=== PATIENT | male | born 1970 | race Caucasian/White ===

== ENCOUNTER 2018-11-02 16:25 | Emergency (ER) | payer MEDICAID ==
[~2018-11-02] VITALS: Ht 188 cm; Wt 70.9 kg
[~2018-11-02 16:25] MED LIST: FANAPT6 MG; INDERAL 40 MG T40 MG PO; NORCO 7.5-3251 EACH PO; TOPAMAX100 MG PO; VALIUM10 MG PO; XANAX2 MG PO; ZOLOFT100 MG PO; [UNRECOGNIZED DRUG - OTHER] PO
[2018-11-02 16:34] VITALS: BP 135/93; Ht 188 cm; Wt 70.9 kg
[2018-11-02] MEDS ORDERED: CELEXA40 MG PO (16:37)
[2018-11-02] MEDS ORDERED: KEFLEX500 MG PO (17:30)
== END 2018-11-02 18:00 | disposition home or self-care (01) ==
LOC: D.ER 16:25
DX: T21.24XA Burn of second degree of lower back, initial encounter (principal); X03.3XXA Fall due to controlled fire, not in building or structure, initial encounter; Y93.89 Activity, other specified; Y92.89 Other specified places as the place of occurrence of the external cause; G40.909 Epilepsy, unspecified, not intractable, without status epilepticus; F17.200 Nicotine dependence, unspecified, uncomplicated

== ENCOUNTER 2019-01-01 14:22 | Emergency (ER) | payer MEDICAID ==
[~2019-01-01] VITALS: Ht 188 cm; Wt 72.7 kg
[~2019-01-01 14:22] MED LIST changes: +CELEXA40 MG PO; +KEFLEX500 MG PO
[2019-01-01 14:27] VITALS: Ht 188 cm; Wt 72.7 kg
[2019-01-01 18:07] VITALS: BP 129/92
== END 2019-01-01 18:08 | disposition home or self-care (01) ==
LOC: D.ER 14:22
DX: F41.1 Generalized anxiety disorder (principal)

== ENCOUNTER 2019-05-25 21:21 | Inpatient (IN) | payer OTHER ==
[~2019-05-25] VITALS: Ht 188 cm; Wt 78.6 kg
--- NOTE | 2019-05-25 22:00 | NUR ---
PT UP TO BATHROOM ABLE TO AMBULATE WITH ASSISTANCE X 2 PT HAD LARGE WATERY LIGHT BROWN BOWEL MOVEMENT. PT UNABLE TO STATE HOW LONG HE HAS HAD DIARRHEA. PT DENIES ABD PAIN OR NAUSEA AT THIS TIME.
[2019-05-25 22:17] LABS: HEMATOCRIT 52.1 % (42.0-54.0); HEMOGLOBIN 18.7 g/dL (13.5-17.5); MCH 33.6 pg (26.0-34.0); MCHC 35.9 g/dL (31.0-37.0); MCV 93.5 fL (80.0-100.0); MEAN PLATELET VOLUME 10.6 fL (7.4-10.4); PLATELET COUNT 184 10x3/uL (130-400); RBC 5.57 10x6/uL (4.20-6.10); RDW 13.6 % (11.5-14.5); WBC 7.2 10x3/uL (4.8-10.8)
[2019-05-25 22:28] LABS: ALBUMIN 4.2 g/dL (3.4-5.0); ALKALINE PHOSPHATASE 78 U/L (46-116); ALT (SGPT) 52 U/L (10-68); BILIRUBIN - TOTAL 0.19 mg/dL (0.2-1.3); CALC OSMOLALITY 274 mosm/kg (275-300); CALCIUM 9.1 mg/dL (8.5-10.1); CARBON DIOXIDE 20.8 mmol/L (21.0-32.0); CHLORIDE - SERUM 102 mmol/L (98-107); GLUCOSE 98 mg/dL (74-106); POTASSIUM - SERUM 3.7 mmol/L (3.5-5.1); PROTEIN - SERUM 8.8 g/dL (6.4-8.2); SODIUM 138 mmol/L (136-145); UREA NITROGEN 9 mg/dL (7-18); eGFR NON AFRICAN AMERICAN 85 mL/min (90-120)
[2019-05-25 22:30] LABS: MAGNESIUM - SERUM 2.1 mg/dL (1.8-2.4)
[2019-05-25 22:38] LABS: EOSINOPHILS 1 % (0-7); LYMPHOCYTES 70 % (15-50); MONOCYTES 2 % (2-11); NEUTROPHILS 25 % (40-80)
[2019-05-25 22:39] LABS: PLATELET ESTIMATE NORMAL; TARGET CELLS 1+; TEAR DROP CELLS 1+
[2019-05-25 22:47] LABS: APPEARANCE CLEAR (CLEAR); BILIRUBIN NEGATIVE (NEGATIVE); COLOR YELLOW (YELLOW); GLUCOSE NEGATIVE (NEGATIVE); KETONE NEGATIVE (NEGATIVE); NITRITE NEGATIVE (NEGATIVE); PROTEIN NEGATIVE (NEGATIVE); UROBILINOGEN NORMAL (NORMAL)
--- NOTE | 2019-05-25 22:50 | NUR ---
PT DID NOT RESPOND TO NARCAN PT STILL LETHARGIC. SEE EMAR. MORRISON IMFORMED.
[2019-05-25 22:54] LABS: UDS - AMPHET NEGATIVE QUAL (NEGATIVE); UDS - BARB NEGATIVE QUAL (NEGATIVE); UDS - BENZO NEGATIVE QUAL (NEGATIVE); UDS - COCAINE NEGATIVE QUAL (NEGATIVE); UDS - OPIATE NEGATIVE QUAL (NEGATIVE); UDS - PCP NEGATIVE QUAL (NEGATIVE); UDS - THC NEGATIVE QUAL (NEGATIVE)
--- NOTE | 2019-05-25 22:58 | NUR ---
POISION CONTROL CALLED FOR POSSIBLE CITALOPRAM OVERDOSE. ADVISED TO OBTAIN 12-LEAD EKG, ASA AND ACETAMINOPHEN INTOX SCREENS. EDP NOTIFIED.
[2019-05-25 23:00] VITALS: BP 118/74
--- NOTE | 2019-05-25 23:00 | NUR ---
PT O2 ON RA IS 92% MD INFORMED. MOVED TO T 3 AT THIS TIME PT PLACED 4 L NC PT O2 IS NOW IMPROVED TO 94%.MD AT BEDSIDE. WILL CONTINUE TO MONITOR.
--- NOTE | 2019-05-25 23:10 | NUR ---
AMMONIA PLACED UNDER PT NOSE TO STIMULATE PT TO ASK QUESTIONS. PT ABLE TO OPEN EYE AND SIT UP PT FOLLOWS COMMANDS BUT FALLS ASLEEP WHEN NOT STIMULATED HAS SLURRED SPEECH AND UNABLE TO ANSWER QUESTIONS
--- NOTE | 2019-05-25 23:20 | NUR ---
PT HAD BM AT THIS TIME AND URINATED ON HIMSELF. STATES TO PLACE COCHRAN. PT TOLERATED WELL
[2019-05-26] VITALS (26 sets, daily range): BP systolic 99–123; BP diastolic 68–83; Ht 188 cm; Wt 78.6 kg
--- NOTE | 2019-05-26 | NUR ---
NASAL TRUMPET PLACED TO L SIDED NARE PER MD
--- NOTE | 2019-05-26 00:10 | NUR ---
ORNAMENTAL PLASTERER HELPER CALLED AT THIS TIME FOR PSYCH EVALUATION. PT HAS ETOH ON BOARD AND IS UNABLE TO ANSWER PSYCH QUESTIONS AT THIS TIME. WILL EVAL LATER. PT DOES STATE THAT IS DID TAKE OD WITH THE PURPOSE TO END HIS LIFE. PSYCH NURSE INFORMED.
--- NOTE | 2019-05-26 01:10 | NUR ---
PT HAD BOWELMOVENT AT THIS TIME. DENIES COMPLAINTS. PT RESTING EYES CLOSED ON MONITOR AT THIS TIME. WILL CONT TO MONITOR.
--- NOTE | 2019-05-26 02:00 | NUR ---
PT RESTING ON MONITOR AT THIS TIME RESP EVEN AND UNLABORED.
--- NOTE | 2019-05-26 03:00 | NUR ---
PT HAD BM AT THIS TIME. PT ON MONITOR WILL CONT TO MONTIOR PT
--- NOTE | 2019-05-26 07:46 | NUR ---
LYING IN BED RESTING AT THIS TIME, RESPIRATIONS STEADY AND UNALBORED. PT AWAKENS WHEN SPOKEN TO AND ANSWERS QUESTIONS APPROPIATELY. PT DENIES CURRENTLY BEING SUICIDAL, BUT STATED LAST NIGHT HE WAS. VSS. SITTER PRESENT. WILL CONTINUE TO CLOSELY OBSERVE.
--- NOTE | 2019-05-26 09:45 | NUR ---
FAX SENT TO [facility] REGARDING CONSULT FOR DR MCDOWELL.
--- NOTE | 2019-05-26 10:15 | NUR ---
PER DR MCDOWELL, PT NEEDS INPATIENT PSYCH PLACEMENT WHEN MEDICALLY CLEARED BY ADMITTING PHYSICIAN. NO ACUTE DISTRESS NOTED. VSS. WILL CONTINUE PLAN OF CARE.
--- NOTE | 2019-05-26 12:25 | NUR ---
UP IN BED EATING LUNCH AT THIS TIME. NO ACUTE DISTRESS NOTED. VSS. CALL LIGHT IN REACH. SITTER AT DOORWAY. WILL CONTINUE PLAN OF CARE.
--- NOTE | 2019-05-26 13:26 | NUR ---
EMERGENCY CONTACT INFORMATION VERIFIED BY PT AT THIS TIME.
--- NOTE | 2019-05-26 14:38 | NUR ---
PT REFUSED BED BATH, STATING "NOT NOW."
[2019-05-26] MEDS ORDERED: PROPRANOLOL HCL20 MG PO (14:44)
--- NOTE | 2019-05-26 14:45 | NUR ---
PREFERRED PHARMACY AND RECONCILED MED LIST VERIFIED WITH PT.
--- NOTE | 2019-05-26 15:30 | NUR ---
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 ALSO AT THIS TIME PT HISTORY OBTAINED. NO ACUTE DISTRESS NOTED. WILL CONTINUE PLAN OF CARE.
--- NOTE | 2019-05-26 16:03 | NUR ---
PT LYING IN BED RESTING WITH EYES CLOSED AT THIS TIME. NO ACUTE DISTRESS NOTED. DENIES ANY NEEDS. VSS. SITTER PRESENT. WILL CONTINUE PLAN OF CARE.
--- NOTE | 2019-05-26 18:00 | NUR ---
UP IN BED RESTING AT THIS TIME. NO ACUTE DISTERSS NOTED. AWAKENS EASILY WHEN SPOKEN TO. VSS. CALL LIGHT IN REACH. SITTER PRESENT. WILL CONTINUE PLAN OF CARE.
--- NOTE | 2019-05-26 19:30 | NUR ---
RESUMED CARE OF PT, ASSESSMENT PER FLOWSHEET, PT DROWSY BUT RESPONDS TO VERBAL STIMULI, HR SR ON CM, PPP, DENIES ANY NEEDS AT THIS TIME. PT IN SITTER LINE OF SIGHT, WILL MONITOR.
--- NOTE | 2019-05-26 21:40 | NUR ---
PT RESTING IN BED WITH EYES CLOSED, AROUSES EASILY TO VOICE, TRAY REMOVED AT THIS TIME.
--- NOTE | 2019-05-26 23:30 | NUR ---
REASSESSMENT PER FLOWSHEET, NO ACUTE CHANGES NOTED AT THIS TIME. VSS, CONT POC.
[2019-05-27] VITALS (18 sets, daily range): BP systolic 97–114; BP diastolic 69–80
--- NOTE | 2019-05-27 00:49 | NUR ---
PT RESTING IN BED WITH EYES CLOSED, VSS, CONT TO MONITOR.
--- NOTE | 2019-05-27 03:25 | NUR ---
REASSESSMENT PER FLOWSHEET, NO ACUTE CHANGES NOTED AT THIS TIME, VSS.
--- NOTE | 2019-05-27 03:31 | NUR ---
O2 DECREASED TO 2L NC, O2 SAT REMAINS 98%, WILL MONITOR.
[2019-05-27 05:42] LABS: ALKALINE PHOSPHATASE 63 U/L (46-116); BILIRUBIN - TOTAL 0.68 mg/dL (0.2-1.3); CALC OSMOLALITY 267 mosm/kg (275-300); CALCIUM 7.7 mg/dL (8.5-10.1); CHLORIDE - SERUM 104 mmol/L (98-107); CREATININE - SERUM 0.9 mg/dL (0.6-1.3); GLUCOSE 86 mg/dL (74-106); SODIUM 135 mmol/L (136-145); UREA NITROGEN 9 mg/dL (7-18); eGFR NON AFRICAN AMERICAN > 90 mL/min (90-120)
[2019-05-27 05:48] LABS: LYMPHOCYTES 32.5 % (15-50); MCH 32.9 pg (26.0-34.0); MCHC 34.1 g/dL (31.0-37.0); MEAN PLATELET VOLUME 10.6 fL (7.4-10.4); NEUTROPHILS 57.8 % (40-80); RDW 13.2 % (11.5-14.5); WBC 7.7 10x3/uL (4.8-10.8)
[2019-05-27 05:50] LABS: HEMATOCRIT 41.6 % (42.0-54.0); HEMOGLOBIN 14.2 g/dL (13.5-17.5); MCV 96.5 fL (80.0-100.0); PLATELET COUNT 125 10x3/uL (130-400); RBC 4.31 10x6/uL (4.20-6.10)
[2019-05-27 05:51] LABS: ALBUMIN 2.9 g/dL (3.4-5.0); ALT (SGPT) 30 U/L (10-68); CARBON DIOXIDE 26.6 mmol/L (21.0-32.0); POTASSIUM - SERUM 4.4 mmol/L (3.5-5.1); PROTEIN - SERUM 6.1 g/dL (6.4-8.2)
--- NOTE | 2019-05-27 06:02 | NUR ---
PT RESTING IN BED WITH EYES CLOSED, AROUSES EASILY TO VOICE, DENIES ANY NEEDS AT THIS TIME, VSS.
--- NOTE | 2019-05-27 08:41 | NUR ---
UP IN BED EATING BREAKFAST AT THIS TIME. NO ACUTE DISTRESS NOTED. VSS. PT INDEPENDENT IN BED. DENIES ANY NEEDS. WILL CONTINUE PLAN OF CARE.
--- NOTE | 2019-05-27 10:49 | CN ---
PATIENT NAME:JOSE APARICIO JR MEDICAL RECORD: [id number] : 72 LOCATION:[id number] ADMIT DATE: 05/26/19 ACCOUNT: [id number] CONSULTING PHYSICIAN: ELLIOT MCDOWELL MD REFERRING PHYSICIAN: AISHA GREGORY MD DATE OF CONSULTATION: 05/26/2019 PSYCHIATRIC CONSULTATION IDENTIFYING DATA: The patient is a 48-year-old and he is admitted to the hospital on a voluntary basis. CHIEF COMPLAINT: Overdose. HISTORY OF PRESENT ILLNESS: The patient drank a large amount of alcohol and took an overdose of Celexa. He was drunk at that time and he thought the Celexa was Klonopin. He tells me that he has numerous stressors, primarily financial and then conflict in his relationship with his significant other of 17 years who happens to be a man and refuses to work even though he is able to do so. The patient himself is on disability secondary to bipolar disorder. He endorses numerous neurovegetative depressive symptoms. He says that he is a binge drinker, does not drink on a daily basis by any means and that he has never had any alcohol withdrawal symptoms. MENTAL STATUS EXAMINATION: The patient is awake, alert and oriented to person, place, time and situation. His mood is depressed. His affect is constricted. Thought processes are circumstantial. Memory, concentration, and abstraction abilities are moderately impaired and he denies that he would seek to harm himself or others as well as active psychotic symptoms. ASSESSMENT: 1. Bipolar disorder depressed. 2. Status post overdose. PLAN: At this time, the patient is sober, depressed, and says he is unsure if he still wants to hurt himself. He is in need of transferred to acute inpatient psychiatric care once medically stabilized. TRANSINT:[id number] Voice Confirmation ID: [id number] DOCUMENT ID: [id number] ELLIOT MCDOWELL MD at 1049 CC: [id number] DICTATION DATE: 05/26/19 1123 ASSISTANCE REPRESENTATIVE: 05/26/19 1353 [place] [address]
--- NOTE | 2019-05-27 13:06 | NUR ---
COCHRAN DC AT THIS TIME PER PHYSICIAN ORDERS. CATHETER TIP INTACT. NO ACUTE DISTRESS NOTED. VSS. WILL CONTINUE PLAN OF CARE.
--- NOTE | 2019-05-27 14:17 | NUR ---
NOTED ORDERS FOR PT TO GO TO INPATIENT PSYCH PLACEMENT. TRANSFER CENTER CONTACTED, NECESSARY INFORMATION SENT. WAITING TO HEAR BACK FROM TRANSFER CENTER REGARDING TRANSFER PLACEMENT FOR INPATINENT PSYCH. NO ACUTE DISTRESS NOTED. WILL CONTINUE PLAN OF CARE.
--- NOTE | 2019-05-27 14:33 | NUR ---
BED BATH OFFERED, PT REFUSED BATH STATING "NO." ALSO AT THIS TIME CONTINENT VOID AND BOWEL MOVEMENT NOTED, BOWEL MOVEMENT MEDIUM LIQUID BROWN. PT PROVIDED OWN CHUCKY CARE. VSS. NO ACUTE DISTRESS NOTED. WILL CONTINUE PLAN OF CARE.
--- NOTE | 2019-05-27 17:19 | NUR ---
REPORT CALLED TO TICO OLIVARES RN, FOR PT TO GO TO [facility]. DR JANNY SANCHEZ TO BE PTS PHYSICIAN AT [facility].
--- NOTE | 2019-05-27 18:08 | NUR ---
VERBAL/TELEPHONE ORDER RECIEVED BY DR GREGORY TO TRANSFER PT TO INPATIENT PSYCH PLACEMENT AT [facility].
--- NOTE | 2019-05-27 18:36 | NUR ---
NOTED AMBULANCE TO ARRIVE IN AROUND AN HOUR, PT UP IN BED AWAKE. DENIES ANY NEEDS. PT HAS SIGNED PAPERWORK TO BE TRANSFERRED TO INPATIENT PSYCH PLACEMENT AT [facility]. NO ACUTE DISTRESS NOTED. VSS. WILL CONTINUE PLAN OF CARE.
--- NOTE | 2019-05-27 19:00 | NUR ---
REPORT RECEIVED, ASSESSMENT COMPLETE, PT AAOx4 PT DENIES PAIN OR NEEDS, RT AC 20g PIV REMOVED FOR TRANSFER, [facility] AND RECEIVING FACILITY CONTACTED BY DAY SHIFT, PT VSS, WILL CONTINUE TO MONITOR
--- NOTE | 2019-05-27 20:37 | NUR ---
[facility] AT BEDSIDE, REPORT GIVEN TO RITA AGRAWAL [employer] CAR WASH ATTENDANT
--- NOTE | 2019-05-28 09:50 | MORECARE ---
CASE MANAGEMENT DISCHARGE SUMMARY PATIENT: JOSE APARICIO JR UNIT: [id number] ADM DATE: 05/26/19 AGE: 48 : 72 SEX: M ROOM/BED: D.2302 AUTHOR: SEAN ARIAS PHYSICIAN: REFERRING PHYSICIAN: AISHA GREGORY MD DATE OF SERVICE: 05/28/19 Discharge Plan Patient Name: JOSE APARICIO [facility] [facility] 1970 Planned Disposition: Anticipated Discharge Date: Discharge Date: 05/27/2019 Expected LOS: Initial Reviewer: [email or web address] Initial Review Date: 05/26/2019 Generated: 05/28/19 10:50 am Comments DCP- Discharge Planning Updated by [email or web address]: Karyn Hayes on 05/27/19 3:[address] Patient has been accepted to the [facility] for PSYCH treatment. Karyn Hayes RN CM Patient Name: JOSE APARICIO Page [id number] at 0950 All edits/amendments must be made on the electronic document DICTATION DATE: 05/28/1950 STOVE MOUNTER: EVAN 05/28/19 0950 RPT#: [id number] DC DATE:05/27/19 STATUS: DIS IN [facility] [address] [place] [address] END OF REPORT
== END 2019-05-27 20:40 | disposition short-term general hospital (02) | DRG 918 ==
LOC: D.ER 21:21 → D.ICU 05-26 03:03
PROVIDERS: Family Medicine; ADMIT Family Medicine; ATTEND Family Medicine
DX: T43.222A Poisoning by selective serotonin reuptake inhibitors, intentional self-harm, initial encounter (principal); R45.851 Suicidal ideations; F10.129 Alcohol abuse with intoxication, unspecified; F31.9 Bipolar disorder, unspecified

== ENCOUNTER 2020-01-16 19:21 | Emergency (ER) | payer OTHER ==
[~2020-01-16] VITALS: Ht 188 cm; Wt 86.4 kg
[~2020-01-16 19:21] MED LIST changes: +PROPRANOLOL HCL20 MG PO
[2020-01-16 19:24] VITALS: Ht 188 cm; Wt 86.4 kg
[2020-01-16 20:46] VITALS: BP 120/72
== END 2020-01-16 20:30 | disposition home or self-care (01) ==
LOC: D.ER 19:21
DX: S91.312A Laceration without foreign body, left foot, initial encounter (principal); X99.1XXA Assault by knife, initial encounter; Y93.9 Activity, unspecified; Y92.9 Unspecified place or not applicable

== ENCOUNTER → 2020-05-01 11:04 | Outpatient (CLI) | payer OTHER ==
[2020-01-16 19:24] VITALS: BMI 24.4
== END | disposition home or self-care (01) ==
LOC: D.HCCECHO 11:04
PROVIDERS: ATTEND Internal Medicine Cardiovascular Disease
DX: R06.00 Dyspnea, unspecified (principal)

== ENCOUNTER 2020-05-21 10:46 | Day surgery (SDC) | payer OTHER ==
[~2020-05-21] VITALS: Ht 188 cm; Wt 87.0 kg
--- NOTE | ~2020-05-21 | HEMODYNAMI ---
PATIENT:JOSE APARICIO JR MEDICAL RECORD: [id number] : 72 LOCATION:[facility] ADMISSION DATE: 05/21/20 Generatedon:05/21/202013:59 Patient name: JOSE APARICIO Patient #: [id number] SSN: [id number] : 1970 Date of study: 05/21/2020 Page: Of Hemodynamic Procedure Report Patient Data Patient Demographics Procedure consent was obtained First Name: JOSE Gender: Male Last Name: ALESSANDRA Suffix: [facility] Initial: S : 1970 Patient #: [id number] Age: 49 year(s) Race: SSN: [id number] Additional ID: [id number] Contact details [address]: [address] [place] [address] State: [place] City: [place] Zip code: [address] Past Medical History Allergies Allergen Reaction Date Comments Reported Other allergy 05/21/2020 steriods/sulfa Admission Admission Data Admission Date: 05/21/2020 Admission Time: 10:46 Arrival Date: 05/21/2020 Arrival Time: 0:00 Admit Source: Other Height (in.): 74.02 BSA: 2.14 (m2) Height (cm.): 188 BMI: 24.62 (kg/m2) Weight (lbs.): 191.8 Weight (kg.): 87 Lab Results Lab Result Date: 05/21/2020 Lab Result Time: 0:00 Biochemistry Name Units Result Min Max BUN mg/dl 10 --(-*--)-- 7 18 Creatinine mg/dl 1.4 --(----)*- 0.6 1.3 eGFR ml/min 57 *-(----)-- 90 120 NONAFRICAN CBC Name Units Result Min Max Hematocrit % 50 --(--*-)-- 42 54 Hemoglobin g/dl 17.7 --(----)*- 13.5 17.5 Procedure Procedure Types Cath Procedure Diagnostic Procedure LHC LHC w/Coronaries FFR/IVUS FFR Initial Sedation Charges Moderate Sedation up to 30 minutes PCI Procedure Hemochron ACT Test Procedure Description Procedure Date Procedure Date: 05/21/2020 Procedure Start Time: 13:25 Procedure End Time: 13:53 Procedure Staff Name Function Demarcus Domingo MD Performing Physician Pipe Belcher RN Nurse Aundrea Santiago RT Scrub Leighann Parra RT Monitor Indication Dyspnea Procedure Data Cath Procedure Fluoroscopy Diagnostic fluoroscopy Total fluoroscopy Time: 7.2 time: 7.2 min min Diagnostic fluoroscopy Total fluoroscopy dose: 447 dose: 447 mGy mGy Contrast Material Contrast Material Type Amount (ml) Isovue 300 73 Entry Location Entry Primary Successful Side Size Upsize Upsize Entry Closure Banegas ccessful Closure Location (Fr) 1 (Fr) 2 (Fr) Remarks Device Remarks Radial Right 6 Fr Mechanical artery Short Compression Estimated blood loss: 5 ml Diagnostic catheters Device Type Used For End Catheter Placement DIAGNOSTIC Jw 110cm Procedure 5Fr catheter ([id number]) Procedure Complications No complications Procedure Medications Medication Administration Route Dosage Oxygen etCO2 Nasal cannula 2 l/min Lidocaine 2% added to field 20 Heparin Flush Bag added to field 2 bags (1000units/500ml NS) 0.9% NaCl I.V. 100 ml/hr Versed I.V. 2 mg Fentanyl I.V. 100 mcg Versed I.V. 2 mg Fentanyl I.V. 50 mcg Radial Cocktail I.A. 1 syringe (Verapamil 2mg/Nitro 400mcg/Heparin 1500units) Versed I.V. 2 mg Fentanyl I.V. 50 mcg Heparin Bolus I.V. 3000 units Versed I.V. 1 mg Hemodynamics Rest BSA: 2.14 (m2) HGB: 17.7 (g/dl) O2 Consumption: Estimated: 260.14 (ml/min) O2 Co nsumption indexed: Estimated:121.56 (ml/min/m) Heart Rate: 74 (bpm) Pressure Samples Time Site Value (mmHg) Purpose Heart Use Rate(bpm) 13:28 LV 130/-15,31 Snapshot 95 Gradients Valve Time Site Site Mean SEP/DFP Peak To Heart Use 1 2 (mmHg) (sec/min) Peak Rate (mmHg) (bpm) Aortic 13:28 LV AO 112 Snapshots Pre Cath Intra NCS Post Cath Vital Signs Time Heart Resp SPO2 etCO2 NIBP (mmHg) Rhythm Pain Sedation Rate (ipm) (%) (mmHg) Status Level (bpm) 13:08:59 75 18 99 0 135/89(104) NSR 0 (11) 10(A) , No pain 13:10:52 78 16 99 0 132/90(103) NSR 0 (11) 10(A) , No pain 13:15:00 79 22 96 0 124/85(105) NSR 0 (11) 10(A) , No pain 13:19:03 82 13 98 12.7 119/88(108) NSR 0 (11) 10(A) , No pain 13:23:05 80 15 97 26.3 124/93(105) NSR 0 (11) 10(A) , No pain 13:27:07 90 28 98 12 128/95(111) NSR 0 (11) 10(A) , No pain 13:31:08 97 25 94 18 122/78(91) NSR 0 (11) 9(A) , No pain 13:35:14 91 19 95 27.7 113/81(100) NSR 0 (11) 9(A) , No pain 13:39:16 89 16 97 24 117/82(102) NSR 0 (11) 9(A) , No pain 13:43:17 88 23 97 23.2 121/84(96) NSR 0 (11) 9(A) , No pain 13:47:23 86 14 99 26.2 119/84(96) NSR 0 (11) 10(A) , No pain 13:51:27 84 17 100 23.2 111/87(103) NSR 0 (11) 10(A) , No pain Medications Time Medication Route Dose Verified Delivered Reason Not es Effectiveness by by 13:08:19 Oxygen etCO2 2 l/min Demarcus Buffie used for Nasal Jose L Belcher RN procedure cannula 13:08:26 Lidocaine 2% added 20ml Demarcus Demarcus for local to vial Jose L Domingo MD anesthetic field 13:08:31 Heparin Flush added 2 bags Demarcus Demarcus used for Bag to Jose L Domingo MD procedure (1000units/500ml field NS) 13:08:40 0.9% NaCl I.V. 100 Demarcus Buffie Per physician ml/hr Jose L Belcher RN 13:15:24 Versed I.V. 2 mg Demarcus Buffie for sedation Jose L Belcher RN 13:15:29 Fentanyl I.V. 100 mcg Demarcus Buffie for sedation Jose L Belcher RN 13:20:48 Versed I.V. 2 mg Demarcus Buffie for sedation Jose L Belcher RN 13:20:52 Fentanyl I.V. 50 mcg Demarcus Buffie for sedation Jose L Belcher RN 13:27:11 Radial Cocktail I.A. 1 Demarcus Demarcus for (Verapamil syringe Jose L Domingo MD vasodilation 2mg/Nitro 400mcg/Heparin 1500units) 13:27:16 Versed I.V. 2 mg Demarcus Buffie for sedation Jose L Belcher RN 13:27:20 Fentanyl I.V. 50 mcg Demarcus Buffie for sedation Jose L Belcher RN 13:35:34 Heparin Bolus I.V. 3000 Demarcus Buffie for lex ified units Jose L Belcher RN anticoagulation with dr domingo 13:38:27 Versed I.V. 1 mg Demarcus Buffie for sedation Jose L Belcher RN Procedure Log Time Note 12:40:33 Informed consent obtained and on chart 12:41:47 Indication : Dyspnea 12:45:52 Procedure Status Elective Heart Cath (OP). 12:45:56 Time tracking: Regular hours (M-F 7:00 - 5:00) 12:46:25 Patient allergic to Other allergysteriods/sulfa 12:49:07 Stress Test: yes; abnormal inferior 12:49:11 Risk of Mortality: 0.2 12:49:15 Risk of blood transfusion: 0.1 12:49:20 Risk of LENA: 4.1 12:49:52 Lab Result : BUN 10 mg/dl 12:49:52 Lab Result : eGFR NONAFRICAN 57 ml/min 12:49:52 Lab Result : Creatinine 1.4 mg/dl 12:49:52 Lab Result : Hematocrit 50 % 12:49:52 Lab Result : Hemoglobin 17.7 g/dl 12:50:00 Lab results completed and on chart. 12:50:11 Arrival Date: 05/21/2020 12:00:00 AM 12:50:15 Patient Height : 74.02 inches 12:50:18 Patient Weight : 191.8 lbs 12:51:10 Plan of Care:Hemodynamics will remain stable., Cardiac rhythm will remain stable., Comfort level will be maintained., Respiratory function will remain adequate., Patient/ family verbilizes understanding of procedure., Procedure tolerated without complication., Recovers from procedure without complications.. 12:54:44 Pipe Belcher RN sent for patient. Start room use. 12:55:29 H&P Date Dictated: 05/01/2020 Within 30 days and on chart., H&P Addendum completed by physician on day of procedure. (MUST COMPLETE FOR ALL OUTPATIENTS). 12:55:34 Admit Source: Other 12:56:35 ACC Patient presents with Stable Angina CCS Anginal Class 3--Marked limitation of physical activity, angina occurs with ordinary activity.. 12:56:38 ACCPatient has been prescribed/administered the following anti-anginal medication within the last 2 weeks: None 13:01:04 Patient received from Pre/Post Procedure Room to CCL 1 Alert and oriented. Tansferred to table in Supine position. 13:01:06 Warm blankets applied, and oseas hugger turned on for patient comfort. 13:01:06 Correct patient and procedure confirmed by team. 13:01:07 ECG and BP/O2 sat monitors applied to patient. 13:01:08 Pre-procedure instructions explained to patient. 13:01:09 Pre-op teaching completed and patient verbalized understanding. 13:01:15 Family in waiting room. 13:01:16 Patient NPO since Breakfast. 13:01:20 Is the patient allergic to Iodine/contrast media? No. 13:01:30 Is patient on blood thinner?No 13:01:48 Patient diabetic? No. 13:01:52 Previous problem with sedation/anesthesia? No ? 13:01:54 Snore? No 13:01:55 Sleep apnea? No 13:01:56 Deviated septum? No 13:01:57 Opens mouth fully? Yes 13:01:57 Sticks out tongue? Yes 13:01:59 Airway obstruction? Yes asthma 13:02:10 Dentures? No ? 13:08:19 Oxygen 2 l/min etCO2 Nasal cannula was administered by Pipe Belcher RN; used for procedure; Verbal order read back and verified. 13:08:26 Lidocaine 2% 20ml vial added to field was administered by Demarcus Domingo MD; for local anesthetic; Verbal order read back and verified. 13:08:31 Heparin Flush Bag (1000units/500ml NS) 2 bags added to field was administered by Demarcus Domingo MD; used for procedure; Verbal order read back and verified. 13:08:40 0.9% NaCl 100 ml/hr I.V. was administered by Pipe Belcher RN; Per physician; Verbal order read back and verified. 13:08:58 Pre procedure: right dorsailis pedis pulse 1+ Palpable, but thready & weak; easily obliterated 13:09: Modified Celestine's test Ulnar < 7 seconds 13:09:07 Patient pain scale 0/10 ?. 13:09:17 IV patent on arrival in right forearm with 0.9% NaCl at [facility]. 13:09:23 Right Radial & Right Groin area was prepped with chlora-prep and draped in sterile fashion 13:09:24 Alarms reviewed by R. N. 13:09:24 Sharps counted by scrub and verified by R.N. 13:09:26 Use device set Radial Dx or PCI 13:09:27 ACIST Syringe (33559) opened to sterile field. 13:09:28 Medline Cath Pack ([id number]) opened to sterile field. 13:09:28 Bag Decanter (2002S) opened to sterile field. 13:09:28 ACIST Hand Control (04125) opened to sterile field. 13:09:29 ACIST Manifold (83164) opened to sterile field. 13:09:29 Tegaderm 4 x 4 (1626W) opened to sterile field. 13:09:29 MBrace Wrist Support ([id number]) opened to sterile field. 13:09:45 SHEATH 6FR RAIN (7020417) opened to sterile field. 13:09:47 EMERALD Guide Wire (964-588) opened to sterile field. 13:09:49 NEEDLE Cook 21G 4cm Radial (R70641) opened to sterile field. 13:09:54 Vital chart was started 13::55 Baseline sample Acquired. ::58 Rhythm: sinus rhythm 13::59 Full Disclosure recording started 13:14: Physician arrived 13:: --------ALL STOP TIME OUT------ 13:: Final Timeout: patient, procedure, and site verified with staff and physician. All members of the team are in agreement. 13:14:29 Right Radial & Right Groin site verified by team. 13:14:33 Fire Safety Assessment: A--An alcohol-based skin anteseptic being used preoperatively., C--Open oxygen or nitrous oxide is being used., D--An ESU, laser, or fiber-optic light is being used. 13:14:36 Physical assessment completed. ASA score P 2 - A patient with mild systemic disease as per Demarcus Domingo MD. 13:14:43 3a) 45-59 Moderately reduced kidney function. 13:14:48 Maximum allowable contrast dose (3.7 X eGFR X 0.75)158 ml. 13:14:51 Sedation plan: IV Moderate Sedation Medication:Versed, Fentanyl 13:15:24 Versed 2 mg I.V. was administered by Pipe Belcher RN; for sedation; Verbal order read back and verified. 13:15:29 Fentanyl 100 mcg I.V. was administered by Pipe Belcher RN; for sedation; Verbal order read back and verified. 13:20:32 Zero performed for pressure channel P1 13:20:36 Zero performed for pressure channel P1 13:20:48 Versed 2 mg I.V. was administered by Pipe Belcher RN; for sedation; Verbal order read back and verified. 13:20:52 Fentanyl 50 mcg I.V. was administered by Pipe Belcher RN; for sedation; Verbal order read back and verified. 13:21:39 Zero performed for pressure channel P1 13:21:55 Zero performed for pressure channel P1 13:25:07 Zero performed for pressure channel P1 13:25:21 Procedure started. 13:25:58 Local anesthetic to right radial artery with Lidocaine 2% by Demarcus Domingo MD.INITIAL ACCESS ONLY 13:26:23 A 6 Fr Short sheath was inserted into the Right Radial artery 13:26:54 A DIAGNOSTIC Jw 110cm 5Fr catheter ([id number]) was advanced over the wire and used for Procedure. 13:27:11 Radial Cocktail (Verapamil 2mg/Nitro 400mcg/Heparin 1500units) 1 syringe I.A. was administered by Demarcus Domingo MD; for vasodilation; Verbal order read back and verified. 13:27:16 Versed 2 mg I.V. was administered by Pipe Belcher RN; for sedation; Verbal order read back and verified. 13:27:20 Fentanyl 50 mcg I.V. was administered by Pipe Belcher RN; for sedation; Verbal order read back and verified. 13:28:14 LV gram done using MENDOZA 13::27 EF : 55 % 13:29:26 RCA angiography performed. 13:31:27 LCA angiography performed. 13:31:40 Catheter removed. 13:33:59 [place] Verrata Plus pressure wire (15651Z) opened to sterile field. 13:34:03 INFLATOR Merit BasixCompak (CP5340) opened to sterile field. 13:34:13 TUBING High Pressure Extension Tubing (Jose L) ([id number]) opened to sterile field. 13:34:18 GUIDE 6FR XBLAD 3.5 catheter ([id number]) opened to sterile field. 13:35:34 Heparin Bolus 3000 units I.V. was administered by Pipe Belcher RN; for anticoagulation; verified with dr domingo Verbal order read back and verified. 13:35:41 6 Fr XBLAD 3.5 guide catheter was inserted over the wire 13:38:27 Versed 1 mg I.V. was administered by Pipe Belcher RN; for sedation; Verbal order read back and verified. 13:40:17 FFR/IFR wire advanced. 13:44:05 WIRE REMOVED- DAMAGED 13:44:46 [place] Verrata Plus pressure wire (42347M) opened to sterile field. 13:45:06 FFR/IFR wire advanced. 13:47:48 Wire advanced across lesion. 13:48:03 Circ lesion measured at .98 with IFR 13:49:42 Wire removed. 13:50:06 Guide catheter removed. 13:50:24 Procedure ended.(Physican Out) 13:50:40 ZEPHYR REGULAR TR BAND (336096) opened to sterile field. 13:50:58 Sheath removed intact; hemostasis achieved with Mechanical Compression to the Right Radial artery. 13:51:04 Fluoroscopy time 07.20 minutes. 13:51:07 Flurop Dose total: 447 13:51:07 Fluoroscopy dose: 447 mGy 13:51:13 Dose Area Product 80113 mGy/cm. 13:51:18 Contrast amount:Isovue 300 73ml. 13:51:20 Maximum allowable dose exceeded? No. 13:51:21 Sharps counted by scrub and verified by R.N. 13:51:24 [place] band inflated with 10cc of air. 13:51:27 Post-procedure physical assessment completed. ASA score P 2 - A patient with mild systemic disease as per Demarcus Domingo MD. 13:51:34 Post procedure rhythm: sinus rhythm 13:51:36 Estimated blood loss: 5 ml 13:51:37 Post procedure instruction explained to patient.Patient verbalizes understanding. 13:51:38 Patient needs reinforcement of post procedure teaching. 13:52:12 Procedure type changed to Cath procedure, Diagnostic procedure, LHC, C w/Coronaries, FFR/IVUS, FFR Initial, Sedation Charges, Moderate Sedation up to 30 minutes, PCI procedure, Hemochron ACT Test 13:52:59 Procedure and supply charges have been captured, reviewed, submitted and are correct. 13:53:01 Procedure Complication : No complications 13:53:03 Vital chart was stopped 13:53:04 [facility] Findings: mild to moderate CAD (<70%) 13:53:05 Operative report dictated upon procedure completion. 13:53:06 See physician's report for complete and final results. 13:53:07 Report given to Pre/Post Procedure Room. 13:53:09 Patient transfered to Pre/Post Procedure Room with Bed. 13:53:10 Procedure ended. 13:53:10 Full Disclosure recording stopped 13:53:13 End room use (Document Last) 13:56:45 ACT drawn and resulted at 244 seconds. (normal therapeutic range 180-240 seconds). 13:57:12 ACT drawn and resulted at ? seconds. (normal therapeutic range 180-240 seconds). Device Usage Item Name Manufacture Quantity Catalog Hospital Part Current Mini mal Lot# / Number Charge Number Stock Stock Serial# Code ACIST Acist 1 79944 468743 792112 [id number] 20 Syringe Medical (27502) Systems Inc Medline Medline 1 [id number] 209124 24017 747644 5 Cath Pack ([id number]) Bag Microtek 1 344799 19321 499277 5 Decanter Medical Inc. () ACIST Hand Acist 1 44671 474727 904323 845534 5 Control Medical (75019) Systems Inc ACIST Acist 1 56726 079360 703015 513290 5 Manifold Medical (91760) Systems Inc Tegaderm 4 3M 1 1626W 830831 048929 732371 5 x 4 (1626W) MBrace Advanced 1 140-0250-00 263407 69468 116059 5 Wrist Vascular Support Dynamics ([id number]) SHEATH 6FR Cardinal 1 8089846 456243 4092223 692166 5 RAIN Health (9515708) EMERALD Cardinal 1 502-455 716232 594529 933660 5 Guide Wire Health (502455) NEEDLE Cook Cook Medical 1 R20903 906797 573498 260759 5 21G 4cm Radial (U10319) DIAGNOSTIC Terumo 1 405023 273437 569381 416291 5 Jw 110cm 5Fr catheter (516651) [place] 2 79331L 685107 [id number] 964192 5 Verrata Plus pressure wire (38163F) INFLATOR Merit 1 YX7705 071276 729221 094334 15 Restorando Medical BasixCompak (FO3996) TUBING High Merit 1 [id number] 898030 27609 074922 10 Pressure Medical Extension Tubing (Domingo) (OS1020Q) GUIDE 6FR Cardinal 1 [id number] 823997 363001 606506 10 XBLAD 3.5 Health catheter (74015181) ZEPHYR Cardinal 1 235847 101712 3054358 247485 5 REGULAR TR Health BAND (153699) Signature Audit [place] Stage Time Signature Unsigned Intra-Procedure 05/21/2020 Leighann Parra 1:56:52 PM RT(R) Intra-Procedure 05/21/2020 Pipe Belcher RN 1:57:12 PM Intra-Procedure 05/21/2020 Demarcus Domingo MD 1:59:09 PM [facility] [address] [place] [address]
[2020-05-21] MEDS ORDERED: ZYPREXA20 MG PO (11:19)
[2020-05-21] MEDS ORDERED: KLONOPIN1 MG PO (11:20)
[2020-05-21] MEDS ORDERED: SAPHRIS5 MG SL (11:20)
[2020-05-21] MEDS ORDERED: OMEPRAZOLE40 MG PO (11:20)
[2020-05-21] MEDS ORDERED: SYMBICORT 16010.2 GM INH (11:20)
[2020-05-21 11:45] VITALS: BP 130/91; Ht 188 cm; Wt 87.0 kg
[2020-05-21 11:55] LABS: BASOPHILS 0.5 % (0-2); EOSINOPHILS 0.9 % (0-7); HEMOGLOBIN 17.7 g/dL (13.5-17.5); IMMATURE GRANULOCYTES 0.3 % (0-5); LYMPHOCYTES 31.2 % (15-50); MCH 33.5 pg (26.0-34.0); MCHC 35.4 g/dL (31.0-37.0); MCV 94.5 fL (80.0-100.0); MONOCYTES 11.3 % (2-11); NEUTROPHILS 55.8 % (40-80); RBC 5.29 10x6/uL (4.20-6.10); RDW 13.5 % (11.5-14.5); WBC 7.5 10x3/uL (4.8-10.8)
[2020-05-21 12:00] LABS: PLATELET COUNT 168 10x3/uL (130-400)
[2020-05-21 12:07] LABS: ANION GAP 12.9 mmol/L (8-16); CALCIUM 9.1 mg/dL (8.5-10.1); CARBON DIOXIDE 26.4 mmol/L (21.0-32.0); CHOL - HDL RATIO 3.6 ratio (2.3-4.9); CREATININE - SERUM 1.4 mg/dL (0.6-1.3); LDL-HDL RATIO 2.2 ratio (1.5-3.5); POTASSIUM - SERUM 4.3 mmol/L (3.5-5.1)
--- NOTE | 2020-05-21 14:05 | NUR ---
PT ARRIVED BY STRETCHER. PLACED ON MONITORS. ASSESSMENT COMPLETED. VSS AT THIS. CALL LIGHT WITHIN REACH. NO NEEDS AT THIS TIME. FAMILY AT BEDSIDE.
--- NOTE | 2020-05-21 14:20 | NUR ---
RIGHT WRIST Z BAND IN PLACE. NO BLEEDING/HEMATOMA NOTED. VSS.
[2020-05-21] MEDS ORDERED: ISOSORBIDE MONO30 M1 PO (14:21)
--- NOTE | 2020-05-21 14:50 | NUR ---
RIGHT WRIST Z BAND IN PLACE. NO BLEEDING/HEMATOMA NOTED. VSS. CALL LIGHT WITHIN REACH. PT AWAKE AND ALERT. SET UP WITH SANDWICH TRAY AND DRINK. DENIES NAUSEA/PAIN AT THIS TIME.
--- NOTE | 2020-05-21 15:30 | NUR ---
RIGHT WRIST Z BAND IN PLACE. NO BLEEDING/HEMATOMA NOTED. VSS. CALL LIGHT WITHIN REACH. NO NEEDS AT THIS TIME. 2cc OF AIR REMOVED FROM Z BAND. TOLERATED WELL.
--- NOTE | 2020-05-21 15:45 | NUR ---
3cc OF AIR REMOVED FROM Z BAND. NO BLEEDING/HEMATOMA NOTED. CALL LIGHT WITHIN REACH. VSS. NO NEEDS.
--- NOTE | 2020-05-21 16:00 | NUR ---
REMAINDER OF AIR REMOVED FROM Z BAND. TOLERATING WELL. VSS. CALL LIGHT WITHIN REACH. NO NEEDS AT THIS TIME. FAMILY AT BEDSIDE.
--- NOTE | 2020-05-21 16:15 | NUR ---
RIGHT WRIST Z BAND REMOVED AND DRESSING APPLIED. NO BLEEDING/HEMATOMA NOTED. PIV D/C'D WITH CATH TIP INTACT. TOLERATED WELL. DISCUSSED DISCHARGE INSTRUCTIONS WITH PT AND PT'S FAMILY. THEY VOICED UNDERSTANDING.
--- NOTE | 2020-05-21 16:30 | NUR ---
PT AMBULATED TO RESTROOM. VOIDED WITHOUT DIFFICULTY. STEADY GAIT NOTED. RIGHT WRIST DRESSING C/D/I. NO S/S OF HEMATOMA NOTED. PT TAKEN DOWN TO VEHICLE BY WHEELCHAIR. NO S/S OF DISTRESS NOTED. ALL BELONGINGS AND PAPERWORK IN HAND.
== END 2020-05-21 16:30 | disposition home or self-care (01) ==
LOC: D.CATH 10:46 → EDSTATUS 13:00 → D.CATH 13:00
PROVIDERS: ATTEND Internal Medicine Cardiovascular Disease
DX: I25.119 Atherosclerotic heart disease of native coronary artery with unspecified angina pectoris (principal); R94.39 Abnormal result of other cardiovascular function study; Z72.0 Tobacco use

== ENCOUNTER → 2020-07-07 12:29 | Outpatient (CLI) | payer OTHER ==
[2020-05-21 11:45] VITALS: BMI 24.6
[~2020-07-07 12:29] MED LIST changes: +ISOSORBIDE MONO30 M1 PO; +KLONOPIN1 MG PO; +OMEPRAZOLE40 MG PO; +SAPHRIS5 MG SL; +SYMBICORT 16010.2 GM INH; +ZYPREXA20 MG PO
== END | disposition home or self-care (01) ==
LOC: D.RAD 12:29
PROVIDERS: ATTEND Internal Medicine Gastroenterology
DX: R13.10 Dysphagia, unspecified (principal)